=== PATIENT | male | born 1955 | race Two or more races ===

== ENCOUNTER 2018-12-29 13:27 | Emergency (ER) | payer OTHER ==
[2018-12-29 13:41] VITALS: BP 124/73; PULSE 63; TEMP 97.8; BMI 38.0
--- NOTE | 2018-12-29 15:43 | PDOC ---
History of Present Illness - General Chief Complaint: Injury Stated Complaint: LACERATION RT FORARM Time Seen by Provider: 12/29/18 14:25 History Source: Patient Exam Limitations: No Limitations - History of Present Illness Initial Comments: 12/29/18 15:37 63 year old male with history of cholecystectomy, colon surgery, and hernia repair presents with laceration to right forearm. Patient states sliced by sharp edge of the aluminum container. States tetanus is up to date. 12/29/18 15:44 Timing/Duration: reports: yesterday Severity: Yes: mild Location: reports: extremities Respiratory Risk Factors: reports: no cause identified Modifying Factors: improves with: antihistamine Associated Symptoms: reports: denies symptoms Past History - Travel Traveled outside of the country in the last 30 days: No Close contact w/someone who was outside of country & ill: No - Past Medical History Allergies/Adverse Reactions: Allergies Allergy/AdvReac Type Severity Reaction Status Date / Time ciprofloxacin Allergy Verified 12/29/18 14:36 Home Medications: Ambulatory Orders Cyanocobalamin (Vitamin B-12) [Vitamin B12] 2,500 mcg PO DAILY 02/23/18 Methylcellulose [Fiber] 500 mg PO DAILY 02/23/18 Multivitamin [One Daily] 1 each PO DAILY 02/23/18 COPD: No - Surgical History Abdominal Surgery: Yes (LIVER SX, HERNIA) Appendectomy: Yes Cholecystectomy: Yes GI Surgery: Yes (TUMOR REMOVED FROM SIGMOID COLON) - Suicide/Smoking/Psychosocial Hx Smoking History: Never smoked Have you smoked in the past 12 months: No Information on smoking cessation initiated: No Hx Alcohol Use: No Drug/Substance Use Hx: No Review of Systems - Review of Systems Able to Perform ROS?: Yes Is the patient limited Citizen Of [place] proficient: No Constitutional: No: Chills, Fever, Night Sweats HEENTM: No: Nose Congestion, Throat Pain Respiratory: No: Orthopnea, Wheezing Cardiac (ROS): No: Chest Pain, Lightheadedness Integumentary: Yes: Other (laceration to right forearm ) Neurological: No: Numbness, Weakness Psychiatric: No: Stressors, Change in Appetite *Physical Exam - Vital Signs Last Vital Signs Temp Pulse Resp BP Pulse Ox 97.8 F 63 18 124/73 96 12/29/18 13:38 12/29/18 13:38 12/29/18 13:38 12/29/18 13:38 12/29/18 13:38 - Physical Exam General Appearance: Yes: Nourished, Appropriately Dressed HEENT: positive: TMs Normal, Pharynx Normal Neck: positive: Supple. negative: Lymphadenopathy (R), Lymphadenopathy (L) Respiratory/Chest: positive: Lungs Clear. negative: Respiratory Distress, Accessory Muscle Use Cardiovascular: positive: Regular Rhythm, Regular Rate, S1, S2 Extremity: positive: Normal Capillary Refill, Other (+ laceration to right posterior forearm ) Neurologic: positive: Fully Oriented, Alert Procedures - Laceration/Wound Repair Right Dorsal Arm Wound Length: 2.6 to 5.0 cm Wound's Depth, Shape: superficial Irrigated w/ Saline: Yes Betadine Prep: Yes Anesthesia: 2% Lidocaine Amount of Anesthetic (ccs): 4 Wound Debrided: minimal Wound Repaired With: Sutures Suture Size/Type: 5:0 Layer Closure: No Sterile Dressing Applied: No Splint Applied: No Sling Applied: No Medical Decision Making - Medical Decision Making 12/29/18 15:46 63 year old male with history of cholecystectomy, colon surgery, and hernia repair presents with laceration to right forearm Plan laceration repair analgesia *DC/Admit/Observation/Transfer Diagnosis at time of Disposition: Laceration - Discharge Dispostion Disposition: HOME Condition at time of disposition: Good Decision to Admit order: No - Referrals Referrals: Roberto Diaz MD [Primary Care Provider] - - Patient Instructions Printed Discharge Instructions: DI for Laceration Repair, DI for Minor Laceration Additional Instructions: Keep dressing in place for 24 hours clean and dry Remove dressing after 24 hours, wash gently with mild soap and water may apply bacitracin every other day Return to ed for suture removal 01/12/2019 - Post Discharge Activity Forms/Work/School Notes: Back to Work
== END 2018-12-29 16:00 | disposition home or self-care (01) ==
LOC: JERFT 13:27
PROC: 0HQDXZZ Repair Right Lower Arm Skin, External Approach (ICD-10-PCS; principal; 2018-12-29)
DX: S51.811A Laceration without foreign body of right forearm, initial encounter (principal); W26.8XXA Contact with other sharp object(s), not elsewhere classified, initial encounter; Y93.89 Activity, other specified; Y92.89 Other specified places as the place of occurrence of the external cause; Y99.8 Other external cause status
CPT/HCPCS: 12002-25; 99281-25

== ENCOUNTER 2019-01-12 16:15 | Emergency (ER) | payer OTHER ==
--- NOTE | 2019-01-12 16:19 | PDOC ---
Rapid Medical Evaluation Time Seen by Provider: 01/12/19 16:17 Medical Evaluation: Allergies Allergy/AdvReac Type Severity Reaction Status Date / Time ciprofloxacin Allergy Verified 12/29/18 14:36 01/12/19 16:18 Pt presents to the ED with c/o: suture removal placed here 2 weeks ago, no complaints Pt on brief exam: dry intact sutures to rt arm Pt ordered for: none Pt to proceed to the ED Discharge Disposition - Diagnosis Encounter for removal of sutures - Referrals Referrals: Roberto Diaz MD [Primary Care Provider] - - Patient Instructions - Post Discharge Activity
[2019-01-12 16:24] VITALS: BP 136/65; PULSE 83; TEMP 98.5; BMI 36.6
--- NOTE | 2019-01-12 16:51 | PDOC ---
Suture Removal/Wound Check HPI - History of Present Illness Chief Complaint: Suture/Staple Removal(Here) Stated Complaint: STICHES REMOVAL Time Seen by Provider: 01/12/19 16:17 History Source: Yes: Patient Exam Limitations: Yes: No Limitations Treated at: [facility] ED - Previous ED Treatment Type of procedure performed on last visit: Yes: Laceration Repair Past History - Past Medical History Allergies/Adverse Reactions: Allergies Allergy/AdvReac Type Severity Reaction Status Date / Time ciprofloxacin Allergy Verified 01/12/19 16:33 Home Medications: Ambulatory Orders Cyanocobalamin (Vitamin B-12) [Vitamin B12] 2,500 mcg PO DAILY 02/23/18 Methylcellulose [Fiber] 500 mg PO DAILY 02/23/18 Multivitamin [One Daily] 1 each PO DAILY 02/23/18 COPD: No Other medical history: ARTHRITIS - Surgical History Abdominal Surgery: Yes (LIVER SX, HERNIA) Appendectomy: Yes Cholecystectomy: Yes GI Surgery: Yes (TUMOR REMOVED FROM SIGMOID COLON) - Immunization History Immunization Up to Date: Yes - Suicide/Smoking/Psychosocial Hx Smoking History: Never smoked Have you smoked in the past 12 months: No Hx Alcohol Use: No Drug/Substance Use Hx: No *Physical Exam - Vital Signs Last Vital Signs Temp Pulse Resp BP Pulse Ox 98.5 F 83 17 136/65 97 01/12/19 16:18 01/12/19 16:18 01/12/19 16:18 01/12/19 16:18 01/12/19 16:18 - Physical Exam General Appearance: Yes: Nourished, Appropriately Dressed HEENT: positive: BERNIE, Normal ENT Inspection Integumentary: positive: Normal Color, Dry, Warm, Pale (well approximated wound to all her aspect of right forearm ) Neurologic: positive: 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
== END 2019-01-12 16:49 | disposition home or self-care (01) ==
LOC: JERFT 16:15
DX: Z48.817 Encounter for surgical aftercare following surgery on the skin and subcutaneous tissue (principal); Z48.02 Encounter for removal of sutures
CPT/HCPCS: 99281-25

== ENCOUNTER 2019-12-13 02:16 | Emergency (ER) | payer OTHER ==
[2019-12-13 02:42] VITALS: BP 127/88; PULSE 64; TEMP 98.3; BMI 39.3
--- NOTE | 2019-12-13 04:41 | PDOC ---
History of Present Illness - General Chief Complaint: Pain Stated Complaint: PAIN Time Seen by Provider: 12/13/19 04:24 - History of Present Illness Initial Comments: 12/13/19 04:41 HPI: 64 y/o M with hx of diverticulitis and multiple abd surgeries presenting with abd pain that started 4hrs prior to arrival. Pain is LLQ with generalized abd radiaiton. and sharp in nature. He tried extra str tylenol with no improvement. He states his pain feels like his prior diverticulitis. He has nausea but no emesis, denies fever, chills, diarrhea, constiaption, chest pain, cough, SOB, dysuria. PMHx: as noted above ROS: as noted SHx: Denies tobacco use; occ alcohol use; no rec drugs Allergies: NKDA ROS: GENERAL/CONSTITUTIONAL: No fever or chills. No weakness. HEAD, EYES, EARS, NOSE AND THROAT: No change in vision. No ear pain or discharge. No sore throat. CARDIOVASCULAR: No chest pain or shortness of breath RESPIRATORY: No cough, wheezing, or hemoptysis. GASTROINTESTINAL: +nausea; no vomiting, diarrhea or constipation. GENITOURINARY: No dysuria, frequency, or change in urination. MUSCULOSKELETAL: No joint or muscle swelling or pain. No neck or back pain. SKIN: No rash NEUROLOGIC: No headache, vertigo, loss of consciousness, or change in strength/sensation. ENDOCRINE: No increased thirst. No abnormal weight change HEMATOLOGIC/LYMPHATIC: No anemia, easy bleeding, or history of blood clots. ALLERGIC/IMMUNOLOGIC: No hives or skin allergy. PE: GENERAL: Awake, alert, and fully oriented, no acute distress HEAD: No signs of trauma, normocephalic, atraumatic EYES: EOMI, sclera anicteric, conjunctiva clear ENT: Auricles normal inspection, hearing grossly normal, nares patent, oropharynx clear without exudates. Moist mucosa NECK: Normal ROM, no lymphadenopathy LUNGS: No increased work of breathing, symmetrical chest rise, clear to auscultation bilaterally, no wheezes, crackles or rhonchi HEART: Regular rate, regular rhythm, normal S1 and S2, no murmur, peripheral pulses 2+ and equal bilaterally. ABDOMEN: obese, multiple post surgical scars, Soft, nondistended, ttp in RUQ/LUQ/LLQ, normoactive bowel sounds. No guarding, no rebound. No masses. No CVAT MUSCULOSKELETAL: FROM NEUROLOGICAL: Cranial nerves II through XII grossly intact. Normal speech, normal gait, no focal sensorimotor deficits SKIN: Warm, Dry, normal turgor, no rashes or lesions noted Past History - Past Medical History Allergies/Adverse Reactions: Allergies Allergy/AdvReac Type Severity Reaction Status Date / Time ciprofloxacin Allergy Verified 12/13/19 02:42 Home Medications: Ambulatory Orders Cyanocobalamin (Vitamin B-12) [Vitamin B12] 2,500 mcg PO DAILY 02/23/18 Methylcellulose [Fiber] 500 mg PO DAILY 02/23/18 Multivitamin [One Daily] 1 each PO DAILY 02/23/18 COPD: No - Surgical History Abdominal Surgery: Yes (LIVER SX, HERNIA) Appendectomy: Yes Cholecystectomy: Yes GI Surgery: Yes (TUMOR REMOVED FROM SIGMOID COLON) - Immunization History Immunization Up to Date: Yes - Psycho Social/Smoking Cessation Hx Smoking History: Never smoked Have you smoked in the past 12 months: No Hx Alcohol Use: No Drug/Substance Use Hx: No *Physical Exam - Vital Signs Last Vital Signs Temp Pulse Resp BP Pulse Ox 98.3 F 64 18 127/88 98 12/13/19 02:40 12/13/19 02:40 12/13/19 02:40 12/13/19 02:40 12/13/19 02:40 ED Treatment Course - LABORATORY CBC & Chemistry Diagram: 12/13/19 05:50 12/13/19 05:50 Medical Decision Making - Medical Decision Making 12/13/19 07:23 64 y/o M with hx of diverticulitis and multiple abd surgeries presenting with abd pain that started 4hrs prior to arrival similar to his diverticulitis pain. VSS, AF. Pe with abd ttp. DDx includes diverticulitis, gastritis, sbo, colitis -cbc, cmp, lipase -ivf, ct abd/pel 12/13/19 07:25 signed out to AM team to followup CT and dispo appropriately Discharge - Discharge Information Problems reviewed: Yes Clinical Impression/Diagnosis: Abdominal pain - Follow up/Referral Referrals: Roberto Diaz MD [Primary Care Provider] - - Patient Discharge Instructions - Post Discharge Activity
[2019-12-13] MEDS ORDERED: SODIUM CHLORIDE 1,000 ML IV STA (05:55)
--- NOTE | 2019-12-13 05:56 | PDOC ---
Attending Attestation - Resident Resident Name: Anette Castaneda - ED Attending Attestation I have performed the following: I have examined & evaluated the patient, The case was reviewed & discussed with the resident, I agree w/resident's findings & plan - HPI HPI: 12/13/19 05:51 Pt comes with abdominal discomfort. States that he thinks the corn is causing the pain. - Physicial Exam PE: 12/13/19 05:52 Pt has normal heart and lungs afebrile abd globular; Pt has 4 old abd surgery scars: GB removal; appy; liver abscess removal; colonic resection Pt likely has adhesions from this process - Medical Decision Making 12/13/19 05:55 Pt will have labs and CT scan and we will reevaluate him. Actually day team will get signout and reeval him. Discharge - Discharge Information Problems reviewed: Yes Clinical Impression/Diagnosis: Abdominal pain Qualifiers: Abdominal location: generalized Qualified Code(s): R10.84 - Generalized abdominal pain Condition: Stable Disposition: HOME - Follow up/Referral Referrals: Roberto Diaz MD [Primary Care Provider] - - Patient Discharge Instructions Patient Printed Discharge Instructions: DI for Abdominal Pain-Adult Additional Instructions: you were seen in the ER for abdominal pain follow up with your doctors tomorrow you have been given a copy of your CT report RETURN TO THE ED: for worsening symptoms, fevers. chills - Post Discharge Activity
[2019-12-13 06:07] LABS: BASO % 1.4 % (0-2.0); EOS % 2.1 % (0-4.5); HEMATOCRIT 40.2 % (35.4-49); HEMOGLOBIN 13.6 GM/dL (11.7-16.9); LYMPH % 12.3 % (8-40); MCH 29.9 pg (25.7-33.7); MCHC 33.8 g/dl (32.0-35.9); MEAN CELL VOLUME 88.6 fl (80-96); MEAN PLT VOLUME 9.3 fl (7.5-11.1); MONO % 3.6 % (3.8-10.2); NEUT % 80.6 % (42.8-82.8); PLATELET COUNT 246 K/MM3 (134-434); RBC 4.53 M/mm3 (4.00-5.60); RDW 13.7 % (11.9-15.9); WHITE BLOOD COUNT 11.6 K/mm3 (4.0-10.0)
[2019-12-13 06:18] LABS: PROTHROMBIN TIME (PATIENT) 11.8 SEC (9.7-13.0)
[2019-12-13 07:12] LABS: ALBUMIN 3.6 g/dl (3.4-5.0); BILIRUBIN,TOTAL 0.5 mg/dL (0.2-1); BLOOD UREA NITROGEN 10.6 mg/dL (7-18); CALCIUM 8.3 mg/dL (8.5-10.1); CREATININE 0.8 mg/dL (0.55-1.3); POTASSIUM 4.7 mmol/L (3.5-5.1); TOT PROT 7.8 g/dl (6.4-8.2)
--- NOTE | 2019-12-13 09:18 | PDOC ---
*Physical Exam - Vital Signs Last Vital Signs Temp Pulse Resp BP Pulse Ox 98.3 F 64 18 127/88 98 12/13/19 02:40 12/13/19 02:40 12/13/19 02:40 12/13/19 02:40 12/13/19 02:40 - Physical Exam 12/13/19 09:17 64 y/o M hx of multiple abdominal surgeries presenting with abdominal pain ct abdomen and pelvis pending for diverticulitis rule out. pt reassessed stable, still endorses right sided abdominal pain ED Treatment Course - LABORATORY CBC & Chemistry Diagram: 12/13/19 05:50 12/13/19 05:50 - ADDITIONAL ORDERS Additional order review: Laboratory Results 12/13/19 12/13/19 05:50 05:50 PT with INR 11.80 INR 1.00 Sodium 135 L Potassium 4.7 Chloride 101 Carbon Dioxide 27 Anion Gap 8 BUN 10.6 Creatinine 0.8 Est GFR (CKD-EPI)AfAm 110.96 Est GFR (CKD-EPI)NonAf 95.74 Random Glucose 262 H Calcium 8.3 L Total Bilirubin 0.5 AST 59 H ALT 80 H Alkaline Phosphatase 78 Total Protein 7.8 Albumin 3.6 Lipase 76 12/13/19 05:50 RBC 4.53 MCV 88.6 MCHC 33.8 RDW 13.7 MPV 9.3 Neutrophils % 80.6 Lymphocytes % 12.3 Monocytes % 3.6 L Eosinophils % 2.1 Basophils % 1.4 - Medications Given in the ED: ED Medications Discontinued Medications Generic Name Dose Route Start Last Admin Trade Name Freq PRN Reason Stop Dose Admin Sodium Chloride 1,000 mls @ 1,000 mls/hr 12/13/19 05:55 12/13/19 05:57 Normal Saline - IV 12/13/19 06:54 1,000 mls/hr ASDIR STA Administration Medical Decision Making - Medical Decision Making 12/13/19 10:50 no diverticulitis on abdomen and pelvis CT small bowel loop on ct pt pain improved at this time and he has been having regular bowel movemnts has good follow up will d/c Discharge - Discharge Information Problems reviewed: Yes Clinical Impression/Diagnosis: Abdominal pain Qualifiers: Abdominal location: generalized Qualified Code(s): R10.84 - Generalized abdominal pain Condition: Stable Disposition: HOME - Admission No - Follow up/Referral Referrals: Roberto Diaz MD [Primary Care Provider] - - Patient Discharge Instructions Patient Printed Discharge Instructions: DI for Abdominal Pain-Adult Additional Instructions: you were seen in the ER for abdominal pain follow up with your doctors tomorrow you have been given a copy of your CT report RETURN TO THE ED: for worsening symptoms, fevers. chills - Post Discharge Activity
== END 2019-12-13 11:42 | disposition home or self-care (01) ==
LOC: JER 02:16
DX: R10.84 Generalized abdominal pain (principal)
CPT/HCPCS: 36415; 71045-TC-FY; 74177-TC; 80053; 83690; 85025; 85610; 99285-25; J7030

== ENCOUNTER 2020-09-17 10:34 | Emergency (ER) | payer OTHER ==
[2020-09-17 11:10] VITALS: BP 149/83; PULSE 68; BMI 27.1
== END 2020-09-17 14:07 | disposition home or self-care (01) ==
LOC: JERFT 10:34
DX: R22.1 Localized swelling, mass and lump, neck (principal)
CPT/HCPCS: 70490-TC; 82962; 99284-25

== ENCOUNTER 2022-06-11 22:59 | Inpatient (IN) | payer OTHER ==
[2022-06-11] MEDS ORDERED: ONDANSETRON 4 MG/2 ML VIAL IVPUSH ONE (23:25)
[2022-06-11] MEDS ORDERED: morphine CARPU-JECT 4 MG/1 ML DISP.SYRIN IVPUSH ONE (23:25)
[2022-06-12] MEDS ORDERED: morphine SULFATE 4 MG/ML VIAL ONE ×2 (00:11→03:08)
[2022-06-12] MEDS ORDERED: ONDANSETRON 4 MG/2 ML VIAL ONE (00:12)
[2022-06-12 00:39] LABS: BASO % 0.5 % (0-2.0); HEMATOCRIT 43.7 % (35.4-49); HEMOGLOBIN 14.2 GM/dL (11.7-16.9); LYMPH % 8.4 % (8-40); MCHC 32.5 g/dl (32.0-35.9); MEAN CELL VOLUME 89.1 fl (80-96); MEAN PLT VOLUME 8.7 fl (7.5-11.1); MONO % 3.7 % (3.8-10.2); NEUT % 86.4 % (42.8-82.8); PLATELET COUNT 266 10^3/uL (134-434); RBC 4.91 M/mm3 (4.00-5.60); RDW 13.1 % (11.9-15.9); WHITE BLOOD COUNT 13.2 K/mm3 (4.0-10.0)
[2022-06-12 00:43] LABS: INR 1.14 (0.83-1.09); PROTHROMBIN TIME (PATIENT) 13.1 SEC (9.7-13.0)
[2022-06-12 00:46] LABS: ACTIVATED PTT 34.3 SECONDS (25.2-36.5)
[2022-06-12 00:59] LABS: CALCIUM 9.3 mg/dL (8.5-10.1)
[2022-06-12 01:00] LABS: ALBUMIN 3.8 g/dl (3.4-5.0); BLOOD UREA NITROGEN 12.8 mg/dL (7-18)
[2022-06-12 01:03] LABS: CREATININE 0.9 mg/dL (0.55-1.3)
[2022-06-12 01:04] LABS: TOT PROT 7.6 g/dl (6.4-8.2)
[2022-06-12 01:05] LABS: BILIRUBIN,TOTAL 0.7 mg/dL (0.2-1)
[2022-06-12 01:08] LABS: LACTIC ACID 2.4 mmol/L (0.4-2.0)
[2022-06-12] MEDS ORDERED: LACTATED RINGERS SOLUTION 1000 ML INFUS.BAG IV ONE (01:11)
[2022-06-12] MEDS ORDERED: morphine CARPU-JECT 4 MG/1 ML DISP.SYRIN IVPUSH ONE (02:56)
[2022-06-12] MEDS ORDERED: LIDOCAINE HCL 2% JELLY 10 ML CARTRIDGE PR ONE (05:46)
[2022-06-12] MEDS ORDERED: LIDOCAINE HCL 2% JELLY 10 ML CARTRIDGE ONE (05:47)
[2022-06-12] MEDS ORDERED: ACETAMINOPHEN 1000 MG/100 ML BAG IVPB PRN (05:54)
[2022-06-12] MEDS ORDERED: ONDANSETRON 4 MG/2 ML VIAL IVPUSH PRN (05:54)
[2022-06-12] MEDS ORDERED: MELATONIN 5 MG TABLETS PO PRN (05:54)
[2022-06-12] MEDS ORDERED: HYDROCHLOROTHIAZIDE 12.5 MG CAPSULE (FP) PO SCH (07:00)
[2022-06-12 07:11] LABS: LACTIC ACID 2.4 mmol/L (0.4-2.0)
[2022-06-12] MEDS: SODIUM CHLORIDE 1,000 ML IV SCH (07:54)
[2022-06-12] MEDS: INSULIN SLIDING SCALE (NOVOLOG) 1 VIAL SQ SCH ×3 (07:54→23:07)
[2022-06-12] MEDS ORDERED: ACETAMINOPHEN INJECTION 100 ML IVPB ONE (07:59)
[2022-06-12 08:23] LABS: CALCIUM 9.2 mg/dL (8.5-10.1)
[2022-06-12 08:24] LABS: ALBUMIN 3.6 g/dl (3.4-5.0); BLOOD UREA NITROGEN 10.2 mg/dL (7-18)
[2022-06-12 08:27] LABS: CREATININE 0.8 mg/dL (0.55-1.3); PHOSPHOROUS 3.5 mg/dL (2.5-4.9)
[2022-06-12 08:28] LABS: BILIRUBIN,TOTAL 0.8 mg/dL (0.2-1)
[2022-06-12 08:29] LABS: TOT PROT 7.1 g/dl (6.4-8.2)
[2022-06-12 08:38] LABS: URINE APPEARANCE CLEAR; URINE BILIRUBIN NEGATIVE (NEGATIVE); URINE COLOR YELLOW; URINE KETONE TRACE (NEGATIVE); URINE LEUK ESTERASE NEGATIVE (NEGATIVE); URINE NITRITE NEGATIVE (NEGATIVE); URINE PROTEIN NEGATIVE (NEGATIVE); URINE UROBILINOGEN 0.2 mg/dL (0.2-1.0)
[2022-06-12] MEDS ORDERED: LISINOPRIL 20 MG TABLET PO SCH (10:00)
[2022-06-13 00:11] VITALS: BMI 39.2
[2022-06-13] MEDS ORDERED: INSULIN (LEVEMIR) 100 UNITS/ML UNITS SQ SCH (07:00)
[2022-06-13] MEDS: INSULIN SLIDING SCALE (NOVOLOG) 1 VIAL SQ SCH ×4 (07:04→23:00)
[2022-06-13] MEDS: SODIUM CHLORIDE 1,000 ML IV SCH ×2 (07:04→19:25)
[2022-06-13 09:23] LABS: BASO % 0.3 % (0-2.0); EOS % 3.8 % (0-4.5); HEMATOCRIT 41.1 % (35.4-49); HEMOGLOBIN 13.7 GM/dL (11.7-16.9); MCH 29.5 pg (25.7-33.7); MCHC 33.2 g/dl (32.0-35.9); MEAN CELL VOLUME 88.9 fl (80-96); MEAN PLT VOLUME 8.1 fl (7.5-11.1); MONO % 7.8 % (3.8-10.2); NEUT % 66.1 % (42.8-82.8); PLATELET COUNT 248 10^3/uL (134-434); RBC 4.63 M/mm3 (4.00-5.60); RDW 13.2 % (11.9-15.9); WHITE BLOOD COUNT 8.3 K/mm3 (4.0-10.0)
[2022-06-13 09:52] LABS: ALBUMIN 3.5 g/dl (3.4-5.0); BLOOD UREA NITROGEN 8.7 mg/dL (7-18)
[2022-06-13 09:55] LABS: CREATININE 0.8 mg/dL (0.55-1.3)
[2022-06-13 09:57] LABS: BILIRUBIN,TOTAL 0.9 mg/dL (0.2-1); TOT PROT 6.8 g/dl (6.4-8.2)
[2022-06-13] MEDS ORDERED: morphine SULFATE 4 MG/ML VIAL IVPUSH ONE (22:45)
[2022-06-14] MEDS: INSULIN SLIDING SCALE (NOVOLOG) 1 VIAL SQ SCH ×5 (07:04→21:51)
[2022-06-14] MEDS: SODIUM CHLORIDE 1,000 ML IV SCH (08:56)
[2022-06-14 10:02] LABS: BASO % 0.7 % (0-2.0); EOS % 4.4 % (0-4.5); HEMATOCRIT 42.7 % (35.4-49); HEMOGLOBIN 13.9 GM/dL (11.7-16.9); LYMPH % 21.1 % (8-40); MCH 28.9 pg (25.7-33.7); MCHC 32.6 g/dl (32.0-35.9); MEAN CELL VOLUME 88.8 fl (80-96); MEAN PLT VOLUME 8.2 fl (7.5-11.1); MONO % 8.5 % (3.8-10.2); NEUT % 65.3 % (42.8-82.8); PLATELET COUNT 286 10^3/uL (134-434); WHITE BLOOD COUNT 7.6 K/mm3 (4.0-10.0)
[2022-06-14 10:38] LABS: ALBUMIN 3.5 g/dl (3.4-5.0); BLOOD UREA NITROGEN 11.1 mg/dL (7-18)
[2022-06-14 10:41] LABS: CREATININE 0.7 mg/dL (0.55-1.3)
[2022-06-14 10:44] LABS: TOT PROT 7.1 g/dl (6.4-8.2)
[2022-06-14 10:45] LABS: BILIRUBIN,TOTAL 1.1 mg/dL (0.2-1)
[2022-06-14] MEDS ORDERED: morphine SULFATE 4 MG/ML VIAL IVPUSH ONE (12:30)
[2022-06-14] MEDS ORDERED: ONDANSETRON *ODT* 4 MG TABLET SL PRN (21:39)
[2022-06-14] MEDS: RIFAXIMIN 550 MG TABLET PO SCH (21:51)
[2022-06-14] MEDS: SIMETHICONE 80 MG TAB.CHEW (FP) PO PRN (21:52)
[2022-06-14 23:09] VITALS: RESP 18
[2022-06-15] MEDS: SIMETHICONE 80 MG TAB.CHEW (FP) PO PRN ×2 (06:36→12:13)
[2022-06-15] MEDS: INSULIN SLIDING SCALE (NOVOLOG) 1 VIAL SQ SCH ×2 (06:36→12:14)
[2022-06-15] MEDS: RIFAXIMIN 550 MG TABLET PO SCH ×2 (06:36→14:30)
[2022-06-15 08:01] VITALS: BP 117/53; PULSE 61; TEMP 98.3
[2022-06-15 08:19] LABS: BASO % 0.7 % (0-2.0); HEMATOCRIT 41.7 % (35.4-49); HEMOGLOBIN 13.6 GM/dL (11.7-16.9); LYMPH % 21.6 % (8-40); MCH 28.7 pg (25.7-33.7); MCHC 32.5 g/dl (32.0-35.9); MEAN CELL VOLUME 88.2 fl (80-96); MEAN PLT VOLUME 8.1 fl (7.5-11.1); MONO % 8.9 % (3.8-10.2); NEUT % 63.8 % (42.8-82.8); PLATELET COUNT 269 10^3/uL (134-434); RBC 4.73 M/mm3 (4.00-5.60); WHITE BLOOD COUNT 7.1 K/mm3 (4.0-10.0)
[2022-06-15 08:42] LABS: CALCIUM 9.1 mg/dL (8.5-10.1)
[2022-06-15 08:43] LABS: BLOOD UREA NITROGEN 8.9 mg/dL (7-18)
[2022-06-15 08:46] LABS: CREATININE 0.7 mg/dL (0.55-1.3)
[2022-06-15] MEDS ORDERED: PANTOPRAZOLE 40 MG TABLET PO SCH (10:00)
== END 2022-06-15 15:00 | disposition home or self-care (01) | DRG 389 ==
LOC: JER 22:59 → JERBED 06-12 02:35 → J5S 06-12 21:25
PROVIDERS: ADMIT Family Medicine; ATTEND Family Medicine
PROC: 0D9670Z Drainage of Stomach with Drainage Device, Via Natural or Artificial Opening (ICD-10-PCS; principal; 2022-06-12)
DX: K56.690 Other partial intestinal obstruction (principal); E87.1 Hypo-osmolality and hyponatremia; E87.2 Acidosis; E11.65 Type 2 diabetes mellitus with hyperglycemia; E01.0 Iodine-deficiency related diffuse (endemic) goiter; I11.0 Hypertensive heart disease with heart failure; I50.9 Heart failure, unspecified; E66.8 Other obesity; Z68.39 Body mass index [BMI] 39.0-39.9, adult; D72.829 Elevated white blood cell count, unspecified; E11.51 Type 2 diabetes mellitus with diabetic peripheral angiopathy without gangrene; Z88.1 Allergy status to other antibiotic agents; Z79.4 Long term (current) use of insulin
CPT/HCPCS: 36415; 71045-TC-FY; 74018-TC-FY; 74019-TC-FY; 74177-TC; 80048; 80053; 81003; 82962; 83605; 83690; 83735; 84100; 84484; 85025; 85610; 85730; 86850; 86900; 86901; 87086; 93005; 93010; 99285-25; C9803-CS; Q9967; U0003; U0005